=== PATIENT | female | born 1995 | race American Indian/Alaskan Native ===

== ENCOUNTER 2018-09-13 20:28 | Inpatient (IN) | payer BC, MEDICAID ==
[2018-09-13] MEDS ORDERED: BRETHINE SUB-Q PRN (22:14)
[2018-09-13] MEDS ORDERED: SUBLIMAZE IV PRN (22:14)
[2018-09-13] MEDS ORDERED: XYLOCAINE 2% INFILTRATI ONE (22:14)
--- NOTE | 2018-09-13 22:28 | History and Physical Report ---
History of Present Illness Date of examination: 09/13/18 Date of admission: 09/13/18 20:30 Chief complaint: Here for induction of labor at 39 weeks for chronic hypertension. History of present illness: 23 year old at 39 weeks here for induction of labor due to chronic hypertension. Patient has received care at [facility] and records are available. LMP 12/14/17. EDC 09/20/18 (based on LMP and confirmed by sono). signficant for the following: obesity (comanaged with APA); chronic hypertension (taking Labetalol 100 mg po BID); history of preeclampsia with previous (pulmonary edema/ICU admission); anemia (supplemented with iron). labs are as follows: A+, antibody screen negative, pap negative, rubella immune, RPR nonreactive, hepatitis B surface antigen negative, HIV negative, HSV 2 negative, varicella immune, hemoglobin electrophoresis AA, GC negative, CT negative, trichomonas negative, Tetra screen negative, 1 hour diabetes screen 113, GBS negative. Past History Past Medical History: other (obesity; history of preeclampsia with pulmonary edema after her last delivery 4 years ago) Past Surgical History: no surgical history [facility] History: denies: abnormal PAP smear, chlamydia, gonorrhea, hepatitis B, herpes, HIV, syphilis, trichomonas Family/Genetic History: diabetes, hypertension - Obstetrical History Expected Date of Delivery: 09/20/18 Actual Gestation: 39 Week(s) 0 Day(s) : 2 Para: 1 Hx # Term Pregnancies: 1 Number of Pregnancies: 0 Spontaneous Abortions: 0 Induced : 0 Number of Living Children: 1 Medications and Allergies Allergies Allergy/AdvReac Type Severity Reaction Status Date / Time No Known Allergies Allergy Verified 08/21/18 21:20 Home Medications Medication Instructions Recorded Confirmed Last Taken Type Aspirin [Aspirin BABY CHEW TAB] 81 mg PO QDAY 08/21/18 08/21/18 08/21/18 09:00 History Labetalol [Normodyne TAB] 100 mg PO BID 08/21/18 08/21/18 08/21/18 09:00 History 100 mg Active Meds: Active Medications Ephedrine Sulfate (Ephedrine Sulfate) 10 mg IV Q2M PRN PRN Reason: Hypotension Fentanyl (Sublimaze) 100 mcg IV Q2H PRN PRN Reason: Labor Pain Lactated Ringer's (Lactated Ringers) 1,000 mls @ 125 mls/hr IV DIRECT ANTON Oxytocin/Sodium Chloride (Pitocin/Ns 20 Unit/1000ml Drip) 20 units in 1,000 mls @ 125 mls/hr IV DIRECT ANTON Oxytocin/Sodium Chloride (Pitocin/Ns 30 Unit/500ml) 30 units in 500 mls @ 1 mls/hr IV TITR ANTON; Protocol Lidocaine (Xylocaine 2%) 20 ml INFILTRATI ONCE ONE Stop: 09/13/18 22:15 Terbutaline Sulfate (Brethine) 0.25 mg SUB-Q ONCE PRN PRN Reason: Hyperstimulation/Hypertonicity Review of Systems All systems: negative (hypertension (on Labetalol)) - Vital Signs Vital signs: Vital Signs Pulse BP 115 H 112/69 09/13/18 21:49 09/13/18 21:49 Temp Pulse Resp BP Pulse Ox 98.6 F 115 H 112/69 09/13/18 22:21 09/13/18 21:49 09/13/18 21:49 - Physical Exam Lungs: Positive: Clear to auscultation Abdomen: Positive: normal appearance, soft. Negative: distention, tenderness, guarding, rigidity Genitourinary (Female): Positive: normal external genitalia. Negative: normal perenium, perineal/vulvar lesions (no lesions seen on careful exam with bright light upon admission) Vagina: Positive: normal moisture Uterus: Positive: enlarged. Negative: tender Anus/Rectum: Positive: normal perianal skin Extremities: Positive: normal, edema (mild pedal edema bilaterally). Negative: tenderness - Obstetrical FHR: category 1 Uterine Contraction Monitor Mode: External Cervical Dilatation: 3 Cervical Effacement Percentage: 30 station: -3 Uterine Contraction Pattern: Irregular Uterine Contraction Intensity: Mild Results Result Diagrams: 09/13/18 21:53 09/13/18 21:53 All other labs normal. Assessment and Plan A: at 39 weeks gestation. Chronic hypertension, controlled on Labetalol. GBS negative. P: Admit. Epidural if desired.
[2018-09-13 22:49] LABS: Hemoglobin 10.5 gm/dl (10.1-14.3); Mean Corpuscular HGB Conc 34 % (30-34); Mean Corpuscular Volume 90 fl (79-97); Red Blood Count 3.43 M/mm3 (3.65-5.03); Red Cell Distribution Width 15.4 % (13.2-15.2)
[2018-09-13 22:52] LABS: Platelet Count 155 K/mm3 (140-440)
[2018-09-13] MEDS ORDERED: PITOCin/NS 30 UNIT/500ML 30 UNITS/500 ML BAG IV SCH (23:00)
[2018-09-13] MEDS ORDERED: NORMODYNE PO SCH (23:00)
[2018-09-13] MEDS ORDERED: PEPCID PO SCH (23:00)
[2018-09-13] MEDS ORDERED: PITOCin/NS 20 UNIT/1000ML DRIP 20 UNITS/1,000 ML BAG IV SCH (23:00)
[2018-09-13 23:03] LABS: Alanine Aminotransferase 5 units/L (7-56); Albumin 3.4 g/dL (3.9-5); BUN/Creatinine Ratio 13; Blood Urea Nitrogen 5 mg/dL (7-17); Calcium 8.6 mg/dL (8.4-10.2); Hemolysis Index 85
[2018-09-13] MEDS: LACTATED RINGERS 1,000 ML IV SCH (23:30)
[2018-09-14 00:17] LABS: Uric Acid 3.3 mg/dL (3.5-7.6)
--- NOTE | 2018-09-14 10:28 | Progress Note ---
Assessment and Plan - Patient Problems (1) 39 weeks gestation of Current Visit: Yes Status: Acute (2) Chronic hypertension Current Visit: Yes Status: Acute Plan to address problem: Asymptomatic - BPs stable Continue Labetalol 100mg PO BID (3) Encounter for induction of labor Current Visit: Yes Status: Acute Plan to address problem: - Continue low-dose Pitocin for cervical ripening (initiated 09/13/18 @ 23:00) - If no cervical change in 12 hours (11:00), discontinue Pitocin. - Patient may take a shower and have a regular diet - Continue cervical ripening with Cervidil or Pitocin - Anticipate vaginal delivery Subjective - Subjective Date of service: 09/14/18 Principal diagnosis: IUP @ 39w1d; IOL secondary to Chronic HTN Interval history: see H&P Patient reports: movement normal, contractions (mild), other ("I am hungry"; denies headache, visual disturbances or RUQ pain), no loss of fluid, no vaginal bleeding Objective - Vital Signs Vital Signs: Vital Signs - 12hr 09/14/18 09/14/18 09/14/18 01:04 02:07 03:07 Temperature Pulse Rate 102 H 104 H 101 H Blood Pressure 114/65 110/66 116/63 09/14/18 09/14/18 09/14/18 05:33 06:07 06:40 Temperature Pulse Rate 106 H 100 H 96 H Blood Pressure 121/69 96/55 114/55 09/14/18 09/14/18 09/14/18 07:07 07:30 08:06 Temperature 97.8 F Pulse Rate 92 H 101 H Blood Pressure 111/60 118/67 09/14/18 09/14/18 09/14/18 08:49 09:03 09:18 Temperature Pulse Rate 96 H 90 83 Blood Pressure 111/65 105/63 127/67 09/14/18 09/14/18 09/14/18 09:34 09:49 10:04 Temperature Pulse Rate 99 H 96 H 97 H Blood Pressure 120/66 110/63 111/62 - Exam Abdomen: Present: normal appearance, soft Vulva: both: normal FHR: auscultation normal, category 1 FHR comments: baseline 140, moderate variability, 15x15 accels, no decels Uterine Contraction Monitor Mode: External Cervical Dilatation: 3 Cervical Effacement Percentage: 30 station: -3 Uterine Contraction Pattern: Irregular Extremities: normal - Labs Labs: Abnormal Labs 09/13/18 09/13/18 09/13/18 21:53 21:53 21:53 RBC 3.43 L RDW 15.4 H Carbon Dioxide 18 L BUN 5 L Creatinine 0.4 L Glucose 109 H Uric Acid 3.3 L ALT 5 L Lactate Dehydrogenase 248 H Total Protein 5.8 L Albumin 3.4 L Laboratory Results - last 24 hr 09/13/18 09/13/18 09/13/18 21:53 21:53 21:53 WBC 10.1 RBC 3.43 L Hgb 10.5 Hct 31.0 MCV 90 MCH 31 MCHC 34 RDW 15.4 H Plt Count 155 Sodium 139 Potassium 4.3 Chloride 103.8 Carbon Dioxide 18 L Anion Gap 22 BUN 5 L Creatinine 0.4 L Estimated GFR > 60 BUN/Creatinine Ratio 13 Glucose 109 H Uric Acid Calcium 8.6 Total Bilirubin 0.20 AST 17 ALT 5 L Alkaline Phosphatase 104 Lactate Dehydrogenase Total Protein 5.8 L Albumin 3.4 L Albumin/Globulin Ratio 1.4 Blood Type A POSITIVE Antibody Screen Negative 09/13/18 21:53 WBC RBC Hgb Hct MCV MCH MCHC RDW Plt Count Sodium Potassium Chloride Carbon Dioxide Anion Gap BUN Creatinine Estimated GFR BUN/Creatinine Ratio Glucose Uric Acid 3.3 L Calcium Total Bilirubin AST ALT Alkaline Phosphatase Lactate Dehydrogenase 248 H Total Protein Albumin Albumin/Globulin Ratio Blood Type Antibody Screen
[2018-09-14] MEDS ORDERED: CERVIDIL VG ONE (14:30)
[2018-09-15] MEDS: LACTATED RINGERS 1,000 ML IV SCH ×3 (00:23→08:17)
--- NOTE | 2018-09-15 05:41 | Anesthesia Consultation ---
Anesthesia Consult and Med Hx - Airway Anesthetic Teeth Evaluation: Good ROM Head & Neck: Adequate Mental/Hyoid Distance: Adequate Mallampati Class: Class III Intubation Access Assessment: Probably Good - Pulmonary Exam CTA: Yes - Cardiac Exam Cardiac Exam: RRR - Pre-Operative Health Status ASA Pre-Surgery Classification: ASA3 Proposed Anesthetic Plan: Epidural - Pulmonary Hx Smoking: No Hx Asthma: No Hx Respiratory Symptoms: No SOB: No COPD: No Home Oxygen Therapy: No Hx Pneumonia: No Hx Sleep Apnea: No - Cardiovascular System Hx Hypertension: Yes (GESTATION) Hx Coronary Artery Disease: No Hx Heart Attack/AMI: No Hx Angina: No Hx Percutaneous Transluminal Coronary Angioplasty (PTCA): No Hx Cardia Arrhythmia: No Hx Pacemaker: No Hx Internal Defibrillator: No Hx Valvular Heart Disease: No Hx Heart Murmur: No Hx Peripheral Vascular Disease: No - Central Nervous System Hx Neuromuscular Disorder: No Hx Seizures: No CVA: No Hx Back Pain: No Hx Psychiatric Problems: No - Gastrointestinal Hx Ulcer: No Hx Gastroesophageal Reflux Disease: No - Endocrine Hx Renal Disease: No Hx End Stage Renal Disease: No Hx Cirrhosis: No Hx Liver Disease: No Hx Insulin Dependent Diabetes: No Hx Non-Insulin Dependent Diabetes: No Hx Thyroid Disease: No Hx Hypothyroidism: No Hx Hyperthyroidism: No - Hematic Hx Anemia: Yes Hx Sickle Cell Disease: No - Other Systems Hx Alcohol Use: No Hx Substance Use: No Hx Cancer: No Hx Obesity: Yes
[2018-09-15] MEDS ORDERED: NARCAN 2 MG/2 ML IV PRN (05:42)
--- NOTE | 2018-09-15 05:42 | Anesthesia Day of Surgery ---
Anesthesia Day of Surgery - Day of Surgery Patient Examined: Yes Patient H&P Reviewed: Yes Patient is NPO: Yes Beta Blockers: No Cardiac Clearance: No Pulmonary Clearance: No
[2018-09-15] MEDS ORDERED: MARCAINE 0.25% INFILTRATI ONE ×4 (05:47→23:22)
[2018-09-15] MEDS: fentaNYL-BUPIV 2 MCG/ML-0.125% 200 MCG/100 ML BAG EPIDURAL SCH ×2 (06:54→16:50)
--- NOTE | 2018-09-15 17:14 | Progress Note ---
Subjective - Subjective Date of service: 09/15/18 Principal diagnosis: IUP @ 39w1d; IOL secondary to Chronic HTN Patient reports: movement normal, contractions (mild), other ("I am hungry"; denies headache, visual disturbances or RUQ pain), no loss of fluid, no vaginal bleeding Objective - Vital Signs Vital Signs: Vital Signs - 12hr 09/15/18 09/15/18 09/15/18 05:16 05:34 05:35 Temperature Pulse Rate 93 H 107 H 53 L Respiratory Rate Blood Pressure 106/65 119/58 O2 Sat by Pulse 84 Oximetry 09/15/18 09/15/18 09/15/18 05:36 05:41 05:46 Temperature Pulse Rate 106 H 95 H 99 H Respiratory Rate Blood Pressure 121/75 O2 Sat by Pulse 100 100 100 Oximetry 09/15/18 09/15/18 09/15/18 05:51 05:56 06:01 Temperature Pulse Rate 90 79 100 H Respiratory Rate Blood Pressure O2 Sat by Pulse 100 100 100 Oximetry 09/15/18 09/15/18 09/15/18 06:02 06:05 06:06 Temperature Pulse Rate 100 H 105 H 92 H Respiratory Rate Blood Pressure 119/61 118/62 O2 Sat by Pulse 100 Oximetry 09/15/18 09/15/18 09/15/18 06:08 06:11 06:14 Temperature Pulse Rate 94 H 86 90 Respiratory Rate Blood Pressure 115/61 118/63 118/64 O2 Sat by Pulse 100 Oximetry 09/15/18 09/15/18 09/15/18 06:16 06:17 06:20 Temperature Pulse Rate 84 101 H 103 H Respiratory Rate Blood Pressure 116/62 120/63 O2 Sat by Pulse 100 Oximetry 09/15/18 09/15/18 09/15/18 06:21 06:24 06:26 Temperature Pulse Rate 107 H 100 H 98 H Respiratory Rate Blood Pressure 130/76 145/73 O2 Sat by Pulse 100 100 Oximetry 09/15/18 09/15/18 09/15/18 06:29 06:31 06:36 Temperature Pulse Rate 210 H 101 H 91 H Respiratory Rate Blood Pressure 132/68 120/69 O2 Sat by Pulse 100 99 Oximetry 09/15/18 09/15/18 09/15/18 06:38 06:41 06:44 Temperature Pulse Rate 89 100 H 107 H Respiratory Rate Blood Pressure 110/57 114/70 111/66 O2 Sat by Pulse 99 Oximetry 09/15/18 09/15/18 09/15/18 06:46 06:47 06:50 Temperature Pulse Rate 98 H 97 H 99 H Respiratory Rate Blood Pressure 108/67 106/54 O2 Sat by Pulse 99 Oximetry 09/15/18 09/15/18 09/15/18 06:51 06:53 06:56 Temperature Pulse Rate 92 H 87 93 H Respiratory Rate Blood Pressure 103/57 91/60 O2 Sat by Pulse 100 99 Oximetry 09/15/18 09/15/18 09/15/18 06:59 07:01 07:02 Temperature 98.6 F Pulse Rate 99 H 94 H 104 H Respiratory 18 18 Rate Blood Pressure 99/60 101/64 O2 Sat by Pulse 100 Oximetry 09/15/18 09/15/18 09/15/18 07:05 07:06 07:11 Temperature Pulse Rate 97 H 97 H 107 H Respiratory Rate Blood Pressure 101/56 O2 Sat by Pulse 99 99 Oximetry 09/15/18 09/15/18 09/15/18 07:16 07:20 07:22 Temperature Pulse Rate 92 H 100 H 121 H Respiratory Rate Blood Pressure 105/55 O2 Sat by Pulse 100 100 Oximetry 09/15/18 09/15/18 09/15/18 07:27 07:32 07:36 Temperature Pulse Rate 88 96 H 99 H Respiratory Rate Blood Pressure 93/53 O2 Sat by Pulse 99 99 Oximetry 09/15/18 09/15/18 09/15/18 07:37 07:42 07:47 Temperature Pulse Rate 100 H 97 H 104 H Respiratory Rate Blood Pressure O2 Sat by Pulse 99 99 98 Oximetry 09/15/18 09/15/18 09/15/18 07:50 07:52 07:57 Temperature Pulse Rate 116 H 112 H 95 H Respiratory Rate Blood Pressure 90/49 O2 Sat by Pulse 99 98 Oximetry 09/15/18 09/15/18 09/15/18 08:02 08:06 08:07 Temperature Pulse Rate 90 100 H 98 H Respiratory Rate Blood Pressure 121/71 O2 Sat by Pulse 97 99 Oximetry 09/15/18 09/15/18 09/15/18 08:21 08:36 08:52 Temperature Pulse Rate 85 94 H 91 H Respiratory Rate Blood Pressure 116/66 119/58 128/67 O2 Sat by Pulse Oximetry 09/15/18 09/15/18 09/15/18 09:06 09:22 09:36 Temperature Pulse Rate 98 H 97 H 86 Respiratory Rate Blood Pressure 116/58 121/56 100/54 O2 Sat by Pulse Oximetry 09/15/18 09/15/18 09/15/18 09:50 10:05 10:20 Temperature Pulse Rate 99 H 90 100 H Respiratory Rate Blood Pressure 92/53 96/50 101/54 O2 Sat by Pulse Oximetry 09/15/18 09/15/18 09/15/18 10:36 10:51 11:07 Temperature Pulse Rate 100 H 90 101 H Respiratory Rate Blood Pressure 101/62 101/59 111/56 O2 Sat by Pulse Oximetry 09/15/18 09/15/18 09/15/18 11:20 11:35 11:51 Temperature Pulse Rate 96 H 98 H 107 H Respiratory Rate Blood Pressure 100/55 101/56 112/71 O2 Sat by Pulse Oximetry 09/15/18 09/15/18 09/15/18 12:00 12:05 12:20 Temperature 98.7 F Pulse Rate 114 H 101 H Respiratory Rate Blood Pressure 102/63 104/67 O2 Sat by Pulse Oximetry 09/15/18 09/15/18 09/15/18 12:36 12:50 13:07 Temperature Pulse Rate 94 H 103 H 103 H Respiratory Rate Blood Pressure 115/58 106/58 118/73 O2 Sat by Pulse Oximetry 09/15/18 09/15/18 09/15/18 13:20 13:35 13:51 Temperature Pulse Rate 93 H 88 105 H Respiratory Rate Blood Pressure 109/59 111/64 129/65 O2 Sat by Pulse Oximetry 09/15/18 09/15/18 09/15/18 14:06 14:20 14:35 Temperature Pulse Rate 93 H 93 H 94 H Respiratory Rate Blood Pressure 114/67 112/67 110/68 O2 Sat by Pulse Oximetry 09/15/18 09/15/18 09/15/18 14:52 15:06 15:20 Temperature Pulse Rate 100 H 116 H 106 H Respiratory Rate Blood Pressure 115/70 117/55 112/55 O2 Sat by Pulse Oximetry 09/15/18 09/15/18 09/15/18 15:36 15:50 16:22 Temperature Pulse Rate 107 H 100 H 106 H Respiratory Rate Blood Pressure 131/76 108/63 119/77 O2 Sat by Pulse Oximetry 09/15/18 09/15/18 09/15/18 16:36 16:51 17:05 Temperature Pulse Rate 115 H 106 H 113 H Respiratory Rate Blood Pressure 104/54 111/71 111/72 O2 Sat by Pulse Oximetry - Labs Labs: Abnormal Labs 09/13/18 09/13/18 09/13/18 21:53 21:53 21:53 RBC 3.43 L RDW 15.4 H Carbon Dioxide 18 L BUN 5 L Creatinine 0.4 L Glucose 109 H Uric Acid 3.3 L ALT 5 L Lactate Dehydrogenase 248 H Total Protein 5.8 L Albumin 3.4 L
--- NOTE | 2018-09-15 17:16 | Ultrasound Report ---
PROCEDURE: US OB LIMITED TECHNIQUE: Limited ultrasound for positioning HISTORY: POSITION LMP 12/14/2017 with estimated age 39 weeks 2 days and EDC 09/20/2018 COMPARISONS: None FINDINGS: positioning is cephalic. heart rate is 144 bpm IMPRESSION: Cephalic positioning. This document is electronically signed by Lorraine Torres MD., September 15 2018 05:13:40 PM ET
--- NOTE | 2018-09-15 18:06 | Progress Note ---
Assessment and Plan (1) 39 weeks gestation of Current Visit: Yes Status: Acute -OBUS cephalic presentation (2) Chronic hypertension Current Visit: Yes Status: Acute Plan to address problem: Asymptomatic - BPs stable Continue Labetalol 100mg PO BID (3) Encounter for induction of labor Current Visit: Yes Status: Acute Plan to address problem: - AROM 09/15 @17:45, lg amt clear fluid (Dr. Burris at bedside) - Not comfortable with epidural; Will have anesthesia rebolus - IUPC placed; Increase pitocin until MVUs 275-300 -Change out Pitocin bag -Consult with Dr. Burris . Agrees to Plan of care. Discussed that after AROM, plan to restart Pitocin with goal of adequate labor (MVUs 275-300). -Anticipate vaginal delivery Subjective - Subjective Date of service: 09/15/18 (17:45) Principal diagnosis: IUP @ 39w1d; IOL secondary to Chronic HTN Interval history: See H&P Patient reports: movement normal, contractions (mild), no loss of fluid, no vaginal bleeding Objective - Vital Signs Vital Signs: Vital Signs - 12hr 09/15/18 09/15/18 09/15/18 06:05 06:06 06:08 Temperature Pulse Rate 105 H 92 H 94 H Respiratory Rate Blood Pressure 118/62 115/61 O2 Sat by Pulse 100 Oximetry 09/15/18 09/15/18 09/15/18 06:11 06:14 06:16 Temperature Pulse Rate 86 90 84 Respiratory Rate Blood Pressure 118/63 118/64 O2 Sat by Pulse 100 100 Oximetry 09/15/18 09/15/18 09/15/18 06:17 06:20 06:21 Temperature Pulse Rate 101 H 103 H 107 H Respiratory Rate Blood Pressure 116/62 120/63 O2 Sat by Pulse 100 Oximetry 09/15/18 09/15/18 09/15/18 06:24 06:26 06:29 Temperature Pulse Rate 100 H 98 H 210 H Respiratory Rate Blood Pressure 130/76 145/73 132/68 O2 Sat by Pulse 100 Oximetry 09/15/18 09/15/18 09/15/18 06:31 06:36 06:38 Temperature Pulse Rate 101 H 91 H 89 Respiratory Rate Blood Pressure 120/69 110/57 O2 Sat by Pulse 100 99 Oximetry 09/15/18 09/15/18 09/15/18 06:41 06:44 06:46 Temperature Pulse Rate 100 H 107 H 98 H Respiratory Rate Blood Pressure 114/70 111/66 O2 Sat by Pulse 99 99 Oximetry 09/15/18 09/15/18 09/15/18 06:47 06:50 06:51 Temperature Pulse Rate 97 H 99 H 92 H Respiratory Rate Blood Pressure 108/67 106/54 O2 Sat by Pulse 100 Oximetry 09/15/18 09/15/18 09/15/18 06:53 06:56 06:59 Temperature Pulse Rate 87 93 H 99 H Respiratory Rate Blood Pressure 103/57 91/60 99/60 O2 Sat by Pulse 99 Oximetry 09/15/18 09/15/18 09/15/18 07:01 07:02 07:05 Temperature 98.6 F Pulse Rate 94 H 104 H 97 H Respiratory 18 18 Rate Blood Pressure 101/64 101/56 O2 Sat by Pulse 100 Oximetry 09/15/18 09/15/18 09/15/18 07:06 07:11 07:16 Temperature Pulse Rate 97 H 107 H 92 H Respiratory Rate Blood Pressure O2 Sat by Pulse 99 99 100 Oximetry 09/15/18 09/15/18 09/15/18 07:20 07:22 07:27 Temperature Pulse Rate 100 H 121 H 88 Respiratory Rate Blood Pressure 105/55 O2 Sat by Pulse 100 99 Oximetry 09/15/18 09/15/18 09/15/18 07:32 07:36 07:37 Temperature Pulse Rate 96 H 99 H 100 H Respiratory Rate Blood Pressure 93/53 O2 Sat by Pulse 99 99 Oximetry 09/15/18 09/15/18 09/15/18 07:42 07:47 07:50 Temperature Pulse Rate 97 H 104 H 116 H Respiratory Rate Blood Pressure 90/49 O2 Sat by Pulse 99 98 Oximetry 09/15/18 09/15/18 09/15/18 07:52 07:57 08:02 Temperature Pulse Rate 112 H 95 H 90 Respiratory Rate Blood Pressure O2 Sat by Pulse 99 98 97 Oximetry 09/15/18 09/15/18 09/15/18 08:06 08:07 08:21 Temperature Pulse Rate 100 H 98 H 85 Respiratory Rate Blood Pressure 121/71 116/66 O2 Sat by Pulse 99 Oximetry 09/15/18 09/15/18 09/15/18 08:36 08:52 09:06 Temperature Pulse Rate 94 H 91 H 98 H Respiratory Rate Blood Pressure 119/58 128/67 116/58 O2 Sat by Pulse Oximetry 09/15/18 09/15/18 09/15/18 09:22 09:36 09:50 Temperature Pulse Rate 97 H 86 99 H Respiratory Rate Blood Pressure 121/56 100/54 92/53 O2 Sat by Pulse Oximetry 09/15/18 09/15/18 09/15/18 10:05 10:20 10:36 Temperature Pulse Rate 90 100 H 100 H Respiratory Rate Blood Pressure 96/50 101/54 101/62 O2 Sat by Pulse Oximetry 09/15/18 09/15/18 09/15/18 10:51 11:07 11:20 Temperature Pulse Rate 90 101 H 96 H Respiratory Rate Blood Pressure 101/59 111/56 100/55 O2 Sat by Pulse Oximetry 09/15/18 09/15/18 09/15/18 11:35 11:51 12:00 Temperature 98.7 F Pulse Rate 98 H 107 H Respiratory Rate Blood Pressure 101/56 112/71 O2 Sat by Pulse Oximetry 09/15/18 09/15/18 09/15/18 12:05 12:20 12:36 Temperature Pulse Rate 114 H 101 H 94 H Respiratory Rate Blood Pressure 102/63 104/67 115/58 O2 Sat by Pulse Oximetry 09/15/18 09/15/18 09/15/18 12:50 13:07 13:20 Temperature Pulse Rate 103 H 103 H 93 H Respiratory Rate Blood Pressure 106/58 118/73 109/59 O2 Sat by Pulse Oximetry 09/15/18 09/15/18 09/15/18 13:35 13:51 14:06 Temperature Pulse Rate 88 105 H 93 H Respiratory Rate Blood Pressure 111/64 129/65 114/67 O2 Sat by Pulse Oximetry 09/15/18 09/15/18 09/15/18 14:20 14:35 14:52 Temperature Pulse Rate 93 H 94 H 100 H Respiratory Rate Blood Pressure 112/67 110/68 115/70 O2 Sat by Pulse Oximetry 09/15/18 09/15/18 09/15/18 15:06 15:20 15:36 Temperature Pulse Rate 116 H 106 H 107 H Respiratory Rate Blood Pressure 117/55 112/55 131/76 O2 Sat by Pulse Oximetry 09/15/18 09/15/1819 15:50 16:22 16:36 Temperature Pulse Rate 100 H 106 H 115 H Respiratory Rate Blood Pressure 108/63 119/77 104/54 O2 Sat by Pulse Oximetry 09/15/18 09/15/18 09/15/18 16:51 17:05 17:20 Temperature Pulse Rate 106 H 113 H 104 H Respiratory Rate Blood Pressure 111/71 111/72 115/76 O2 Sat by Pulse Oximetry 09/15/18 09/15/18 17:38 17:51 Temperature Pulse Rate 107 H 106 H Respiratory Rate Blood Pressure 117/57 107/57 O2 Sat by Pulse Oximetry - Exam Breasts: normal Cardiovascular: Regular rate, Normal S1, Normal S2, No murmurs Lungs: Clear to auscultation, Normal air movement Abdomen: Present: normal appearance, soft, normal bowel sounds. Absent: distention Vulva: both: normal Uterus: Present: other (Gravid) FHR: category 1 FHR comments: Reassuring and reactive. Accelerations present. no decelerations Uterine Contraction Monitor Mode: External Cervical Dilatation: 5 (AROM, lg amt clear fluid with Dr. Burris at Bedside) Cervical Effacement Percentage: 60 station: -4 Uterine Tone Measurement Phase: Resting Uterine Contraction Intensity: Mild Extremities: normal Deep Tendon Reflex Grade: Normal +2 - Labs Labs: Abnormal Labs 09/13/18 09/13/18 09/13/18 21:53 21:53 21:53 RBC 3.43 L RDW 15.4 H Carbon Dioxide 18 L BUN 5 L Creatinine 0.4 L Glucose 109 H Uric Acid 3.3 L ALT 5 L Lactate Dehydrogenase 248 H Total Protein 5.8 L Albumin 3.4 L - Results US- obstetric: report reviewed (cephalic)
--- NOTE | 2018-09-15 23:52 | Post Anesthesia Evaluation ---
- Post Anesthesia Evaluation Patient Participated: Yes Airway Patent: Yes Stable Respiratory Function: Yes Nausea/Vomiting: No Temp > 96.8F: Yes Pain Manageable: Yes Adequeate Hydration: Yes Anesthesia Complications: No Block Receding Appropriately: Yes Patient on Ventilator: No
[2018-09-16] MEDS ORDERED: BENADRYL PO PRN (00:27)
[2018-09-16] MEDS ORDERED: TUCKS PAD TP PRN (00:27)
[2018-09-16] MEDS ORDERED: LANSINOH TP PRN (00:27)
[2018-09-16] MEDS ORDERED: MILK OF MAGNESIA PO PRN (00:27)
[2018-09-16] MEDS ORDERED: ZOFRAN IV PRN (00:27)
[2018-09-16] MEDS ORDERED: DULCOLAX PR PRN (00:27)
[2018-09-16] MEDS ORDERED: NORCO 5/325 PO PRN (00:27)
[2018-09-16] MEDS ORDERED: PHENERGAN PO PRN (00:27)
--- NOTE | 2018-09-16 00:43 | Procedure Note ---
OB Delivery Note - Delivery Date of Delivery: 09/15/18 (7263) Surgeon: АННА LOFTON (DARRYNM) Estimated blood loss: 200cc - Vaginal Delivery presentation: vertex Delivery position: OA Intrapartum events: none Delivery induction: oxytocin Delivery augmentation: rupture of membranes (1745) Route of delivery: Delivery placenta: spontaneous (at 2355) Delivery cord: nuchal cord (x 1), 3 umbilical vessels Episiotomy: none Delivery laceration: other (Bilateral sarah-urethral with left side repaired) Delivery repair: vicryl (2.0 on ) Anesthesia: epidural Delivery comments: Called to room to find viable girl infant delivered and on maternal chest, alert and quiet. Chord was double clamped and cut by FOB after 3 mins. Placenta delivered spontaneously without difficulty, wayne, disposed per hospital policy. Bilateral sarah-urethral lacs with repair to left side, hemostasis maintained. Mother and baby stable, safe and bonding well. - Infant A at 1 minute: 8 at 5 minutes: 9 Gender: Female (Weight: 2786 gms 6lbs 2oz, 18.5 inches)
[2018-09-16] MEDS ORDERED: SODIUM CHLORIDE FLUSH SYRINGE 10 ML IV NR (01:00)
[2018-09-16] MEDS: IBUPROFEN PO SCH ×3 (02:08→17:57)
--- NOTE | 2018-09-16 10:03 | Progress Note ---
Assessment and Plan A: PP Day #1 CHTN P: Follow Routine Orders Plans Mirena for PP Contraception D/c home in the AM RTO in 2 Weeks for BP check Subjective - Subjective Date of service: 09/16/18 Principal diagnosis: IUP @ 39w1d; IOL secondary to Chronic HTN Patient reports: appetite normal, voiding normally, pain well controlled, flatus, ambulating normally, other (Denies HAs, N&V, and visual changes. 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 No longer taking Labetolol) : doing well Objective - Vital Signs Latest vital signs: Vital Signs Temp Pulse Resp BP Pulse Ox 09/16/18 02:55 98.7 F 94 H 18 116/69 100 09/16/18 02:14 90 95 09/16/18 02:13 83 L 09/16/18 02:09 68 98 09/16/18 02:07 81 L 09/16/18 02:01 95 H 99 09/16/18 01:56 89 99 09/16/18 01:51 85 100 09/16/18 01:46 87 100 09/16/18 01:41 89 99 09/16/18 01:36 87 100 09/16/18 01:31 87 100 09/16/18 01:26 83 99 09/16/18 01:21 86 100 09/16/18 01:16 85 100 09/16/18 01:11 92 H 100 09/16/18 01:06 84 100 09/16/18 01:01 86 100 09/16/18 00:56 86 100 09/16/18 00:51 87 100 09/16/18 00:46 88 99 09/16/18 00:41 104 H 99 09/16/18 00:36 105 H 99 09/16/18 00:31 94 H 100 09/16/18 00:26 104 H 100 09/16/18 00:21 117 H 95 09/16/18 00:20 116 H 113/58 09/16/18 00:17 94 H 93 09/16/18 00:16 104 H 94 09/16/18 00:11 92 H 97 09/16/18 00:10 102 H 93 09/16/18 00:06 89 94 09/16/18 00:05 108 H 116/62 91 09/15/18 20:51 111 H 116/75 09/15/18 20:36 102 H 109/62 09/15/18 20:20 99 H 97/66 09/15/18 20:05 101 H 115/69 09/15/18 19:51 93 H 119/69 09/15/18 19:21 110 H 94/52 09/15/18 19:05 96 H 93/49 09/15/18 19:00 98.6 F 09/15/18 18:56 98.2 F 09/15/18 18:51 101 H 100/50 09/15/18 18:22 97 H 103/53 09/15/18 18:08 108 H 128/55 09/15/18 17:51 106 H 107/57 09/15/18 17:38 107 H 117/57 09/15/18 17:20 104 H 115/76 09/15/18 17:05 113 H 111/72 09/15/18 16:51 106 H 111/71 09/15/18 16:36 115 H 104/54 09/15/18 16:22 106 H 119/77 09/15/18 15:50 100 H 108/63 09/15/18 15:36 107 H 131/76 09/15/18 15:20 106 H 112/55 09/15/18 15:06 116 H 117/55 09/15/18 15:00 98.4 F 09/15/18 14:52 100 H 115/70 09/15/18 14:35 94 H 110/68 09/15/18 14:20 93 H 112/67 09/15/18 14:06 93 H 114/67 09/15/18 13:51 105 H 129/65 09/15/18 13:35 88 111/64 09/15/18 13:20 93 H 109/59 09/15/18 13:07 103 H 118/73 09/15/18 12:50 103 H 106/58 09/15/18 12:36 94 H 115/58 09/15/18 12:20 101 H 104/67 09/15/18 12:05 114 H 102/63 09/15/18 12:00 98.7 F 09/15/18 11:51 107 H 112/71 09/15/18 11:35 98 H 101/56 09/15/18 11:20 96 H 100/55 09/15/18 11:07 101 H 111/56 09/15/18 10:51 90 101/59 09/15/18 10:36 100 H 101/62 09/15/18 10:20 100 H 101/54 09/15/18 10:05 90 96/50 Intake and Output 09/15/18 09/16/18 09/16/18 22:59 06:59 14:59 Intake Total 64.233 300 Output Total 1400 Balance 64.233 -1100 Intake: IV 64.233 PITOCin/NS 30 UNIT/500ML 64.233 30 units In 500 ml @ 1 MILLIUNITS/MIN 1 mls/hr IV TITR ANTON Rx#:[id number] Intake, Free Water 300 Output: Urine 1400 Void 1400 Other: Total, Output Amount 600 # Voids Void 1 Estimated Blood Loss 200 - Exam Breasts: Present: normal Cardiovascular: Present: Regular rate Lungs: Present: Clear to auscultation, Normal air movement Abdomen: Present: normal appearance, soft, normal bowel sounds Uterus: Present: normal, firm, fundal height below umbilicus Extremities: Present: normal
--- NOTE | 2018-09-16 10:04 | Discharge Summary ---
Providers - Providers Date of Admission: 09/13/18 20:30 Date of discharge: 09/17/18 Attending physician: SANDOVAL GIBSON MD Primary care physician: SANDOVAL GIBSON MD Hospitalization Reason for admission: induction of labor Delivery: Episiotomy: none Laceration: 1st degree Other procedures: none complications: none Discharge diagnosis: IUP at term delivered [place] baby: female Condition at discharge: Good Disposition: DC-01 TO HOME OR SELFCARE Plan - Provider Discharge Summary Activity: routine, no sex for 6 weeks, no heavy lifting 4 weeks, no strenuous exercise Diet: routine Instructions: routine Additional instructions: [] Smoking cessation referral if applicable(refer to patient education folder for contact #) [] Refer to [facility]'s [facility] Booklet Call your doctor immediately for: * Fever > 100.5 * Heavy vaginal bleeding ( >1 pad per hour) * Severe persistent headache * Shortness of breath * Reddened, hot, painful area to leg or breast * Drainage or odor from incision. * Keep incision clean and dry at all times and follow doctor's instructions regarding bathing/showering - Follow up plan Follow up: SANDOVAL GIBSON MD [Primary Care Provider] - 14 Days
[2018-09-16] MEDS ORDERED: DERMOPLAST TP PRN (10:47)
[2018-09-16 17:01] LABS: Hematocrit 28.8 % (30.3-42.9); Hemoglobin 9.7 gm/dl (10.1-14.3)
[2018-09-17] MEDS: IBUPROFEN PO SCH (09:15)
[2018-09-17 14:09] VITALS: BP 113/74
== END 2018-09-17 13:50 | disposition home or self-care (01) | DRG 806 ==
LOC: TRG 20:28 → LD 20:30 → OB 09-16 02:17
PROVIDERS: ADMIT Obstetrics & Gynecology; ATTEND Obstetrics & Gynecology
PROC: 10E0XZZ Delivery of Products of Conception, External Approach (ICD-10-PCS; principal; 2018-09-15)
PROC: 0UQMXZZ Repair Vulva, External Approach (ICD-10-PCS; 2018-09-15)
PROC: 10H07YZ Insertion of Other Device into Products of Conception, Via Natural or Artificial Opening (ICD-10-PCS; 2018-09-15)
PROC: 3E033VJ Introduction of Other Hormone into Peripheral Vein, Percutaneous Approach (ICD-10-PCS; 2018-09-15)
PROC: 3E0R3BZ Introduction of Anesthetic Agent into Spinal Canal, Percutaneous Approach (ICD-10-PCS; 2018-09-15)
PROC: 00HU33Z Insertion of Infusion Device into Spinal Canal, Percutaneous Approach (ICD-10-PCS; 2018-09-15)
DX: O10.92 Unspecified pre-existing hypertension complicating childbirth (principal); D62 Acute posthemorrhagic anemia; Z37.0 Single live birth; O69.81X0 Labor and delivery complicated by cord around neck, without compression, not applicable or unspecified; O99.214 Obesity complicating childbirth; E66.9 Obesity, unspecified; O71.82 Other specified trauma to perineum and vulva; Z3A.39 39 weeks gestation of pregnancy
CPT/HCPCS: 36415; 59200; 76815; 80053; 83615; 84550; 85014; 85018; 85027; 86592; 86850; 86900; 86901; G0378; J2590; J3010; J7120